=== PATIENT | male | born 1945 ===

== ENCOUNTER 2023-04-30 12:00 | Outpatient (OUT) | payer MEDICARE, OTHER, SELFPAY ==
[2023-04-30 12:44] LABS: Basophils Absolute Auto 0.1 10^3/uL (0.0-0.1); Basophils Percent Auto 0.9 % (0.2-2.0); Eosinophils Absolute Auto 0.3 10^3/uL (0.0-0.7); Eosinophils Percent Auto 3.7 % (0.9-7.0); Hematocrit 44.6 % (42.0-54.0); Hemoglobin 14.4 g/dL (14.0-18.0); Immature Granulocytes Abs Auto 0.02 10^3/uL (0.00-0.03); Immature Granulocytes Pct Auto 0.3 % (0.0-0.5); Lymphocytes Absolute Auto 1.9 10^3/uL (1.2-3.8); Lymphocytes Percent Auto 26.4 % (20.5-60.0); Mean Corpuscular HGB Conc 32.3 g/dL (29.9-35.2); Mean Corpuscular Volume 95.9 fL (80.0-94.0); Mean Platelet Volume 10.4 fL (9.5-13.5); Monocytes Absolute Auto 0.7 10^3/uL (0.3-0.8); Monocytes Percent Auto 9.8 % (1.7-12.0); Neutrophils Absolute Auto 4.2 10^3/uL (1.4-6.5); Neutrophils Percent Auto 58.9 % (43.0-75.0); Platelet Count 167 10^3/uL (150-450); Red Blood Count 4.65 10^6/uL (4.70-6.10); Red Cell Distribution Width 13.4 % (11.0-15.0); White Blood Count 7.1 10^3/uL (4.0-11.0)
[2023-04-30 12:52] LABS: Anion Gap 14.6; BUN Creatinine Ratio 20.3; Carbon Dioxide 27.3 mmol/L (21.0-32.0); Chloride 104 mmol/L (98-107); Estimated GFR (African America >60 (>=60); Estimated GFR (Non-African Ame 54 (>=60); Glucose 90 mg/dL (74-106); Potassium 4.9 mmol/L (3.5-5.1); Sodium 141 mmol/L (136-145)
[2023-04-30 13:05] LABS: INR 2.58; Partial Thromboplastin Time 38.4 sec (22.3-36.2); Prothrombin Time 25.9 sec (9.0-11.6)
== END 2023-04-30 12:01 | disposition home or self-care (01) ==
LOC: LAB 12:09
PROVIDERS: Visit Provider Student in an Organized Health Care Education/Training Program
DX: Z01.818 Encounter for other preprocedural examination (principal); I71.9 Aortic aneurysm of unspecified site, without rupture; S25.00XA Unspecified injury of thoracic aorta, initial encounter
CPT/HCPCS: 36415; 80048; 85025; 85610; 85730; 87081; 99999

== ENCOUNTER 2023-08-06 13:00 | Outpatient (OUT) | payer MEDICARE, OTHER, SELFPAY ==
--- NOTE | 2023-08-06 13:53 | CA_ITS ---
Patient Name: SHUN CONNELLY MR#: [id number] : 1945 Exam Date: 08/06/2023 Ordering Doctor: DR CLYDE HUDSON M.D. ECHOCARDIOGRAM REPORT PROCEDURE: CA ECHO DOPPLER COMPLETE INDICATIONS: AAA, Aneurysm of aorta disease classified elsewhere COMPARISON: None. DESCRIPTION: COMPLETE ECHOCARDIOGRAM Real-time transthoracic echocardiography with 2D, M-mode, spectral and color flow Doppler performed. QUALITY: Technical quality was good. LEFT VENTRICLE: Normal chamber size. Borderline left ventricular hypertrophy. Global left ventricular systolic function is normal. LV EF: Calculated left ventricular ejection fraction is 59%. DIASTOLIC: Normal diastolic function. ATRIAL SEPTUM: LEFT ATRIUM: Normal chamber size. RIGHT ATRIUM: Mild dilatation. Pacer wire present. RIGHT VENTRICLE: Normal chamber size. Normal right ventricular systolic function. Pacer wire present. TRICUSPID VALVE: Normal mobility and thickness. No stenosis with mild regurgitation. No evidence of pulmonary hypertension. RVSP 31 mmHg MITRAL VALVE: Normal mobility and thickness. No evidence of mitral valve stenosis. There is no mitral annular calcification. Trivial mitral regurgitation. AORTIC VALVE: Normal trileaflet appearance. Thickened aortic valve. Normal leaflet mobility. No evidence of aortic valve stenosis. Trivial aortic regurgitation. AORTIC ROOT: Normal diameter and appearance, measuring 3.3 cm. Normal size ascending aorta measuring 2.7 cm. PULMONIC VALVE: Normal thickness and mobility. No stenosis. Trivial regurgitation. PERICARDIUM: No evidence of pericardial effusion. IVC: Collapses with inspirations. Normal size. PLEURA: CONCLUSION: 1. Normal left ventricular systolic function. LVEF is estimated at 55 to 60%. 2. Normal right ventricular size and systolic function. 3. Normal diastolic function. 4. Mild tricuspid regurgitation. 5. Normal right-sided pressures. 6. Normal size aortic root and ascending aorta. Adult Echocardiography Procedure Report Left Ventricle LVEDD (3.7 - 5.6 cm): 4.16 cm LVESD (2.2 - 4.0 cm): 2.80 cm LVIVS thickness (0.6 - 1.2 cm): 1.06 cm LVPW thickness (0.5 - 1.0 cm): 0.87 cm LVOT Max Gradient: 2.91 mm[Hg], 2.48 mm[Hg] LVOT Area (cm2): 0.82 m/s Peak Velocity (LVOT): 0.85 m/s, 0.79 m/s Mean Velocity (LVOT): 0.58 m/s LVOT Diameter 2.03 cm Left Ventricular Ejection Fraction: 58.96 % Left Atrium LA Volume Index (2D A2C): 24.37 ml/m2 Left Atrium Systolic Dimension: 3.05 cm Mitral Valve MV E to A Ratio: 1.34, 1.30 Mitral Valve A-Wave Peak Velocity: 0.59 m/s Mitral Valve E-Wave Peak Velocity: 0.77 m/s Right Ventricle RV Internal Diastolic Dimension: 3.51 cm Aorta AO Root Diam: 3.27 cm Ascending Ao Diam: 2.68 cm Aortic Valve AoV Area (Peak Naldo): 2.77 cm2, 2.88 cm2 AoV Area (VTI): 2.53 cm2, 2.68 cm2 Peak Velocity(Antegrade Flow): 0.96 m/s Peak Gradient(Antegrade Flow): 3.65 mm[Hg] Mean Velocity(Antegrade Flow): 0.70 m/s Mean Gradient(Antegrade Flow): 2.22 mm[Hg] Velocity Time Integral: 23.79 cm Tricuspid Valve Peak Velocity (Regurgitant Flow): 2.30 m/s, 2.62 m/s, 2.65 m/s Pulmonic Valve Mean Gradient: 1.42 mm[Hg] Mean Velocity: 0.56 m/s Peak Velocity: 0.86 m/s, 0.75 m/s Peak Gradient: 2.26 mm[Hg], 2.94 mm[Hg] Right Atrium Right Atrium Systolic Pressure: 68.20 ml, 68.20 ml Dictated by: Clyde Hudson M.D. on 08/08/2023 at 11:52 Approved by: Clyde Hudson M.D. on 08/08/2023 at 11:58
== END 2023-08-06 13:01 | disposition home or self-care (01) ==
LOC: CARD 13:01
PROVIDERS: Visit Provider Internal Medicine Interventional Cardiology
DX: I71.40 Abdominal aortic aneurysm, without rupture, unspecified (principal); I79.0 Aneurysm of aorta in diseases classified elsewhere
CPT/HCPCS: 93306

== ENCOUNTER 2023-08-27 10:17 | Outpatient (OUT) | payer MEDICARE, OTHER, SELFPAY ==
[2023-08-27 10:58] LABS: Chol HDL Ratio 2.4; Cholesterol 136 mg/dL (<=200); HDL Cholesterol 57 mg/dL (40-60); LDL Cholesterol Calculated 63.6 mg/dL; Triglycerides 77 mg/dL (<=150); VLDL CHOLESTEROL 15.4 mg/dL
== END 2023-08-27 10:18 | disposition home or self-care (01) ==
LOC: LAB 10:19
PROVIDERS: Visit Provider Internal Medicine Interventional Cardiology
DX: I25.10 Atherosclerotic heart disease of native coronary artery without angina pectoris (principal); I65.22 Occlusion and stenosis of left carotid artery
CPT/HCPCS: 36415; 80061